=== PATIENT | male | born 1960 | race Two or more races ===

== ENCOUNTER 2020-05-13 05:46 | Inpatient (IN) | payer OTHER ==
[~2020-05-13] VITALS: Ht 177.8 cm; Wt 111.8 kg
[2020-05-13] VITALS (16 sets, daily range): BP systolic 130–159; BP diastolic 80–98
[~2020-05-13 05:46] MED LIST: ADALAT10 MG ORAL; CARVEDILOL25 MG ORAL; FUROSEMIDE40 MG ORAL; HYDRALAZINE HCL50 MG ORAL; LISINOPRIL40 MG ORAL; MULTIVITAMINS1 EAC2 ORAL; OMEPRAZOLE40 M1 ORAL; PROBIOTIC1 EAC2 PO; SIMVASTATIN5 MG ORAL; TYLENOL EXTRA500 MG ORAL
[2020-05-13] MEDS ORDERED: celeBREX 200mg Cap **SURGERY PATIENTS ONLY ORAL ONE (06:00)
[2020-05-13] MEDS ORDERED: ceFAZolin 1gm IVPB IVPB ONE ×2 (06:00)
[2020-05-13] MEDS ORDERED: oxyCONTIN 10mg tab ORAL ONE (06:00)
[2020-05-13] MEDS ORDERED: LR 1000ml 1,000 ML IVLG SCH (06:48)
[2020-05-13] MEDS ORDERED: Bacitracin 50000 Units Vial ONE (06:48)
[2020-05-13] MEDS ORDERED: NeoSporin Gu Irrig 1ml Amp IRRIG ONE (06:48)
--- NOTE | 2020-05-13 06:52 | Anethesia Preoperative Eval ---
Anesthesia Pre-op PMH/ROS General Date of Evaluation: May 13, 2020 Time of Evaluation: 06:49 Anesthesiologist: Micah ASA Score: ASA 3 Mallampati Score Class I : Soft palate, uvula, fauces, pillars visible Class II: Soft palate, uvula, fauces visible Class III: Soft palate, base of uvula visible Class IV: Only hard plate visible Mallampati Classification: Class III Surgeon: Marissa Diagnosis: L Knee Pain Surgical Procedure: L TKR Anesthesia History: none Family History: no anesthesia problems Allergies: Coded Allergies: No Known Allergies (Unverified , 05/13/20) Medications: see eMAR Patient NPO?: Yes Past Medical History Cardiovascular: Reports: HTN, other - HL, CHF Pulmonary: Reports: ULYSSES - CPAP Hematology/Immune: Reports: anemia Musculoskeletal/Integumentary: Reports: OA Other: obesity - BMI 38 Anesthesia Pre-op Phys. Exam Physician Exam Last Vital Signs Date Time Temp Pulse Resp B/P (MAP) Pulse Ox O2 Delivery O2 Flow Rate FiO2 05/13/20 06:18 Room Air 05/13/20 06:14 98.5 68 20 144/93 (110) 97 Constitutional: NAD Neurologic: CN 2-12 intact Cardiovascular: RRR Respiratory: CTA Gastrointestinal: S/NT/ND Airway Exam Mallampati Score: Class III MO: full ROM: limited Teeth: missing, intact Anesthesia Pre-op A/P Risk Assessment & Plan Assessment: ASA 3 Plan: GA,L Adductor Block, SED Status Change Before Surgery: No Pre-Antibiotics Dru Grams Ancef IV Given Within 1 Hr of Incision: Yes Time Given: 07:21 Domenic Obrien MD May 13, 2020 06:52
--- NOTE | 2020-05-13 06:55 | Immediate Post-Op Evaluation ---
Immediate Post-Op Evalulation Immediate Post-Op Evalulation Procedure: L TKR Date of Evaluation: May 13, 2020 Time of Evaluation: 10:04 IV Fluids: 1000 LR Blood Products: 0 Estimated Blood Loss: 50 Urinary Output: 250 Blood Pressure Systolic: 151 Blood Pressure Diastolic: 91 Pulse Rate: 77 Respiratory Rate: 16 O2 Sat by Pulse Oximetry: 100 Temperature (Fahrenheit): 97.2 Pain Score (1-10): 2 Nausea: No Vomiting: No Complications 0 Patient Status: awake, reacts, patent, none Dru Grams Ancef IV Given Within 1 Hr of Incision: Yes Time Given: 07:21 Domenic Obrien MD May 13, 2020 06:55
--- NOTE | 2020-05-13 06:56 | 48 Hour Post Anesthesia Eval ---
Post Anesthesia Evaluation Procedure: L TKR Date of Evaluation: May 13, 2020 Time of Evaluation: 12:14 Blood Pressure Systolic: 141 0: 89 Pulse Rate: 72 Respiratory Rate: 18 Temperature (Fahrenheit): 98 O2 Sat by Pulse Oximetry: 100 Airway: patent Nausea: No Vomiting: No Pain Intensity: 2 Hydration Status: adequate Cardiopulmonary Status: Stable Mental Status/LOC: patient returned to baseline Follow-up Care/Observations: 0 Post-Anesthesia Complications: 0 Follow-up care needed: N/A Domenic Obrien MD May 13, 2020 06:56
[2020-05-13] MEDS ORDERED: EPINEPHrine 1mg/1ml Amp ONE (06:58)
[2020-05-13] MEDS ORDERED: Lidocaine 1% MPF 10mg/ml 5ml ONE (06:58)
[2020-05-13] MEDS ORDERED: Ropivacaine 5mg/ml Vial 20ml INJ ONE ×2 (06:58→07:10)
[2020-05-13] MEDS ORDERED: Sodium Chloride 10ml vial INJ ONE (06:58)
[2020-05-13] MEDS ORDERED: Sterile Water Irrig 1000ml IRRIG ONE (07:00)
[2020-05-13] MEDS ORDERED: Hydromorphone 0.5mg/0.5ml inj IVP PRN (07:00)
[2020-05-13] MEDS ORDERED: Atropine Sulfate 0.4mg/ml inj IVP PRN (07:00)
[2020-05-13] MEDS ORDERED: Ketamine 500mg/10ml vial ONE (07:00)
[2020-05-13] MEDS ORDERED: NS Irrig 2000ml IRRIG ONE (07:00)
[2020-05-13] MEDS ORDERED: oxyCODONE HCL/Acetaminophen 5/325mg ORAL PRN (07:00)
[2020-05-13] MEDS ORDERED: DiphenhydrAMINE 50mg/ml Inj IVP PRN (07:00)
[2020-05-13] MEDS ORDERED: LORazepam Inj 2mg/ml 1ml IV PRN (07:00)
[2020-05-13] MEDS ORDERED: Midazolam 2mg/2ml Inj IVP PRN (07:00)
[2020-05-13] MEDS ORDERED: Metoclopramide 10mg/2ml Inj IVP PRN (07:00)
[2020-05-13] MEDS ORDERED: LR 1000ml ONE (07:00)
[2020-05-13] MEDS ORDERED: HYDROcodone/Acetamin 7.5/325 tab ORAL PRN ×2 (07:00→07:15)
[2020-05-13] MEDS ORDERED: fentaNYL 100 mcg/2 mL IV PRN (07:00)
[2020-05-13] MEDS ORDERED: NS Irrig 1000ml ONE (07:00)
[2020-05-13] MEDS ORDERED: HYDROcodone/Acetamin 5/325 tab ORAL PRN (07:00)
[2020-05-13] MEDS ORDERED: Meperidine 25mg/0.5ml Inj (FOR RIGORS ONLY) IV PRN (07:00)
[2020-05-13] MEDS ORDERED: Labetalol 5mg/ml 20ml vial IV PRN (07:00)
[2020-05-13] MEDS ORDERED: Ketorolac 30mg Inj IV PRN ×2 (07:00)
[2020-05-13] MEDS ORDERED: Acetaminophen (Non formulary) 100 ML IV ONE (07:00)
--- NOTE | 2020-05-13 07:04 | Pre-Procedure Note/Attestation ---
Pre-Procedure Note/Attestation Complete Prior to Procedure Planned Procedure: left Procedure Narrative: left total knee arthroplasty Indications for Procedure Pre-Operative Diagnosis: left knee arthritis Attestation I attest that I discussed the nature of the procedure; its benefits; risks and complications; and alternatives (and the risks and benefits of such alternatives ), prior to the procedure, with the patient (or the patient's legal internet sales representative). I attest that, if there was a reasonable possibility of needing a blood transfusion, the patient (or the patient's legal internet sales representative) was given the [facility] standardized written summary, pursuant to the Renato Carolee Blood Safety Act ([place] Health and Safety Code # 1645, as amended). I attest that I re-evaluated the patient just prior to the surgery and that there has been no change in the patient's H&P, except as documented below: NONE David Ann MD May 13, 2020 07:04
[2020-05-13] MEDS ORDERED: HYDROmorphone 1mg/ml Carpuject SUBQ PRN (07:15)
[2020-05-13] MEDS ORDERED: Tranexamic Acid 1,000 MG in NS 55 ML IV ONE (07:30)
[2020-05-13] MEDS ORDERED: fentaNYL 100 mcg/2 mL IV ONE ×2 (08:13→09:01)
--- NOTE | 2020-05-13 09:39 | Brief Operative Note ---
Immediate Post Operative Note Operative Note Chief Complaint: left knee pain Pre-op Diagnosis: left knee arthritis Procedure: left total knee arthroplasty Post-op Diagnosis: same as pre-op Findings: consistent w/pre-op dx studies Surgeon: Tawny wesley md Director Of Special Education: lexy linares Anesthesiologist: md elías Anesthesia: general Specimen: yes Complications: none Condition: stable Fluids: ns Estimated Blood Loss: minimal Drains: none - clint Implant(s) used?: Yes David Wesley MD May 13, 2020 09:39
--- NOTE | 2020-05-13 10:55 | NUR ---
NURSE NOTES: Radha SIMMONS brought patient by bed in stable condition. Alert and oriented x4. Complain of pain 4/10 on surgical site will administer pain medication as ordered. Surgical dressing intact and dry. On Knee immobilizer. IV dressing intact and dry. Belonging checked with Radha SIMMONS. Bed lowest position. Call light within reach. Will continue to monitor.
--- NOTE | 2020-05-13 11:30 | Operative Note - Dictated ---
DATE OF OPERATION: 05/13/2020 PREOPERATIVE DIAGNOSIS: Left knee end-stage arthritis with varus deformity. POSTOPERATIVE DIAGNOSIS: Left knee end-stage arthritis with varus deformity. PROCEDURE: Left total knee arthroplasty using Alejandro Triathlon System, size 6 cruciate-retaining femur, size 7 tibial base plate, 9 mm thick tibial-bearing insert CS and 36 mm patella all-poly component. SURGEON: David Ann MD. AUDIT SPEC: Daksha Palumbo PA-C. ANESTHESIOLOGIST: Domenic Obrien MD. ANESTHESIA: General LMA anesthesia combined with adductor block for postoperative pain management. ESTIMATED BLOOD LOSS: Less than 50 mL. TOURNIQUET TIME: 80 minutes. COMPLICATIONS: None. BRIEF HISTORY: The patient is a pleasant 59-year-old gentleman, who has had ongoing left knee pain, deformity and arthritic changes. He was treated conservatively and failed all nonoperative treatment. After full discussion of risks, benefits of the surgery and complications associated with it including infection, bleeding, neurovascular complication, possibility of continued pain, possible need for further surgery, possibility of DVT, PE, infection, bleeding, neurovascular complication, possibility of stiffness, loss of motion, need for revision surgery, possible need for resection arthroplasty and other complications that may arise down the line, he opted for surgical treatment. OPERATIVE PROCEDURE: The patient was brought to the operating table and was placed supine. All pressure points were well padded. General LMA anesthesia was induced and left knee was prepped and draped in usual sterile fashion. The left leg was exsanguinated. Tourniquet was inflated to 275 mmHg. A standard anterior approach to the knee was undertaken after time-out was performed and after preop antibiotics were given. Preoperative antibiotics were given prior to tourniquet inflation. Next, tranexamic acid was given preoperatively as well. A standard anterior incision was made over the knee. A medial parapatellar arthrotomy was performed and deep fibers of the MCL were released. The patella was everted and knee was flexed. ACL and PCL were resected. Intramedullary access into the femoral canal was obtained using a drill and once this was completed, the intramedullary guide was placed in. A standard distal 5-degree valgus cut was performed without any complications. At this point, sizing of the femur was made and size 6 appeared to be the right size. There were multiple osteophytes that were removed. Subsequently, the femoral guide was placed about 3 degrees external rotation and anterior, posterior, and chamfer cuts were performed without any complications. Care was given not to notch the femur. At this point, the femoral component was lateralized slightly and the peg holes were drilled. At this point, care was given to the tibial side. The posterior, medial, lateral retractors were placed in. The anterior tibial crest was palpated to recreate anatomical axis. The posterior slope was recreated and while taking 2 mm off the most involved side, which was medial side, a standard tibial cut was performed. Flexion, extension checks were checked and they were excellent. The anatomical axis was created and this was checked both on the tibial guide as well as drop gerard. Once this was completed, sizing was performed and size 7 appeared to be right size. The tibial component was lateralized slightly and externally rotated. At this point, it was drilled and punched. At this point, a trial femoral component, tibial component, a 9 mm poly were placed in and the knee was brought into full extension and full flexion. There was excellent varus valgus tibia 30 degrees, 45 degrees, and 90 degrees of flexion. At this point, care was given to the patella. The patella was everted. It measured 25 mm. A freehand patellar cut was performed with 15 mm of patella was remaining at the end. Sizing was performed and 36 mm patella appeared to be the right size. The peg holes were drilled and patellar trial component was applied. The knee was placed through range of motion with excellent patellofemoral tracking. At this point, all wounds were thoroughly irrigated using copious amount of fluid irrigation. All trial components were removed and again thoroughly irrigation was performed using Simpulse irrigation. The entry into the femoral canal was plugged using bone plugs. At this point, the cement was mixed and the tibial component, femoral component, patella components were all cemented and all excess cement was removed. The cement was cured under compression. Once this was completed, 9 mm poly appeared to be the right size after trialing and actual 9 mm poly was then selected and knee was thoroughly washed out using Simpulse irrigation and the poly was then locked in without any complication. All excess cement and debris was removed prior to final poly insertion. At this point, with all components placed in, range of motion, stability was checked as well as patellofemoral tracking and they all appeared to be excellent. The wounds were thoroughly irrigated using copious amount of fluid. Tourniquet was deflated and there was minimal bleeding. The extensor mechanism was closed using #1 Vicryl suture. Subcutaneous tissue was closed using 2-0 Vicryl suture. The skin was closed using 3-0 Monocryl suture. Dermabond was applied and sterile dressing was applied and the patient tolerated procedure well without any complication, was taken recovery room in stable condition. All lap counts and instrument counts were correct. David Ann M.D. DR: YARA JOB#: [id number] CC: AMINAH
--- NOTE | 2020-05-13 11:44 | Diagnostic Imaging Report ---
INDICATION: Knee pain, postop TECHNIQUE: XRAY Knee 1-2v L Multiple views of the left knee were obtained COMPARISON: None FINDINGS: The patient is status post total left knee arthroplasty and patellar resurfacing with associated postoperative appearance including diffuse soft tissue swelling, subcutaneous emphysema, and a large joint effusion containing gas no evidence of immediate hardware-related complication. No acute fracture. Prosthesis is in anatomic alignment. IMPRESSION: Status post total left knee arthroplasty with associated postoperative appearance.
[2020-05-13] MEDS ORDERED: CRESTOR10 M2 ORAL (12:09)
--- NOTE | 2020-05-13 13:06 | NUR ---
NURSE NOTES: Patient voided 500 ml yellow urine. No complain of discomfort at this time. Will continue to monitor.
[2020-05-13] MEDS: celeBREX 200mg Cap **SURGERY PATIENTS ONLY ORAL SCH (13:20)
[2020-05-13] MEDS: Docusate 100mg cap ORAL SCH ×2 (13:20→17:12)
[2020-05-13] MEDS: D5 1/2NS w/KCl 20mEq 1,000 ML IV SCH (13:22)
--- NOTE | 2020-05-13 13:23 | NUR ---
*-*DISCHARGE PLANNING*-* PATIENT HAS BEEN REFERRED TO: [facility] P: [phone]
--- NOTE | 2020-05-13 13:38 | NUR ---
NURSE NOTES: Spoke to regarding home medication and new order received. Order read back and carried out.
--- NOTE | 2020-05-13 15:52 | NUR ---
P.T Note: P.T evaluation completed and tx initiated POD #0. Please refer to P.T evaluation for current functional status. CPM set up and started . Pt tolerating 0-60 deg well. CPM to be removed OOB after 4-6 hrs of uses. CPM was endorsed to nursing at the end of P.T shift.
[2020-05-13] MEDS: ceFAZolin sod 1 GM in D5W 55 ML IV SCH ×2 (16:30→23:17)
[2020-05-13] MEDS: HYDROcodone/Acetamin 5/325 tab ORAL PRN ×2 (17:13→23:43)
--- NOTE | 2020-05-13 19:26 | NUR ---
NURSE HAND-OFF: Important Events on Shift: Surgery today Patient Status: Stable Diet: Regular Pending Orders: N/A Pending Results/Labs: CBC, CMP on 05/14/20 Pending MD notification: N/A Latest Vital Signs: Temperature 98.6 , Pulse 60 , B/P 131 /82 , Respiratory Rate 20 , O2 SAT 100 , Nasal Cannula, O2 Flow Rate 3 . Vital Sign Comment: Stable Latest Dennis Fall Score: 50 Fall Risk: High Risk Safety Measures: Call light , Bed Alarm , Side Rails Side Rails x1, Bed position . Fall Precautions: Applied Report given to Jack SIMMONS. Patient in stable condition.
--- NOTE | 2020-05-13 19:30 | NUR ---
NURSE NOTES: Received report from IRIS Hyman. Alert and oriented x4. No distress noted. Breathing regular and unlabored. Surgical dressing intact and dry. Knee immobilizer on. IV dressing intact and running fluids as ordered. Bed low and locked position. Call light within reach. Will continue to monitor.
[2020-05-13] MEDS: oxyCONTIN 10mg tab ORAL SCH (21:41)
[2020-05-13] MEDS: Carvedilol 25mg Tab ORAL SCH (21:44)
[2020-05-13] MEDS: HydrALAZINE 50mg tab ORAL SCH (21:45)
[2020-05-14] VITALS: BP 135/85
[2020-05-14] MEDS: D5 1/2NS w/KCl 20mEq 1,000 ML IV SCH ×2 (00:51→17:34)
[2020-05-14 04:00] VITALS: BP 138/90
[2020-05-14 05:38] LABS: BASOPHILS % (AUTO) 0.4 % (0.0-2.0); HEMATOCRIT 32.2 % (42.0-52.0); HEMOGLOBIN 10.5 G/DL (14.2-18.0); LYMPHOCYTES % (AUTO) 10.3 % (20.0-45.0); MEAN CORPUSCULAR VOLUME 89 FL (80-99); MONOCYTES % (AUTO) 10.7 % (1.0-10.0); NEUTROPHILS % (AUTO) 78.7 % (45.0-75.0); PLATELET COUNT 123 K/UL (150-450); RED BLOOD COUNT 3.61 M/UL (4.70-6.10); RED CELL DISTRIBUTION WIDTH 13.4 % (11.6-14.8); WHITE BLOOD COUNT 10.9 K/UL (4.8-10.8)
[2020-05-14 05:52] LABS: ALANINE AMINOTRANSFERASE 20 U/L (12-78); ALBUMIN 3.5 G/DL (3.4-5.0); ALBUMIN/GLOBULIN RATIO 1.1 (1.0-2.7); ALKALINE PHOSPHATASE 35 U/L (46-116); ANION GAP 7 mmol/L (5-15); ASPARTATE AMINO TRANSFERASE 16 U/L (15-37); BILIRUBIN,TOTAL 0.8 MG/DL (0.2-1.0); BLOOD UREA NITROGEN 27 mg/dL (7-18); CARBON DIOXIDE 28 MMOL/L (21-32); CHLORIDE 105 MMOL/L (98-107); CREATININE 1.4 MG/DL (0.55-1.30); POTASSIUM 3.8 MMOL/L (3.5-5.1); SODIUM 140 MMOL/L (136-145)
[2020-05-14] MEDS: HydrALAZINE 50mg tab ORAL SCH ×3 (06:26→21:04)
--- NOTE | 2020-05-14 07:53 | NUR ---
NURSE HAND-OFF: Important Events on Shift: pain management Patient Status: stable Diet: reg Pending Orders: Pending Results/Labs: Pending MD notification: Latest Vital Signs: Temperature 98.5 , Pulse 65 , B/P 130 /65 , Respiratory Rate 18 , O2 SAT 97 , Room Air, O2 Flow Rate 3 . Vital Sign Comment: Latest Dennis Fall Score: 50 Fall Risk: High Risk Safety Measures: Call light Within Reach, Bed Alarm , Side Rails Side Rails x2, Bed position Low and Locked. Fall Precautions: Report given to IRIS Barber.
[2020-05-14 08:00] VITALS: BP 116/66
--- NOTE | 2020-05-14 08:06 | Orthopedic Progress Note ---
Orthopedic - Progress Note Subjective Symptoms: improved - up with walker Objective Laboratory Tests Test 05/14/20 04:45 White Blood Count 10.9 K/UL (4.8-10.8) H Red Blood Count 3.61 M/UL (4.70-6.10) L Hemoglobin 10.5 G/DL (14.2-18.0) L Hematocrit 32.2 % (42.0-52.0) L Mean Corpuscular Volume 89 FL (80-99) Mean Corpuscular Hemoglobin 29.0 PG (27.0-31.0) Mean Corpuscular Hemoglobin Concent 32.5 G/DL (32.0-36.0) Red Cell Distribution Width 13.4 % (11.6-14.8) Platelet Count 123 K/UL (150-450) L Mean Platelet Volume 10.2 FL (6.5-10.1) H Neutrophils (%) (Auto) 78.7 % (45.0-75.0) H Lymphocytes (%) (Auto) 10.3 % (20.0-45.0) L Monocytes (%) (Auto) 10.7 % (1.0-10.0) H Eosinophils (%) (Auto) 0.0 % (0.0-3.0) Basophils (%) (Auto) 0.4 % (0.0-2.0) Sodium Level 140 MMOL/L (136-145) Potassium Level 3.8 MMOL/L (3.5-5.1) Chloride Level 105 MMOL/L (98-107) Carbon Dioxide Level 28 MMOL/L (21-32) Anion Gap 7 mmol/L (5-15) Blood Urea Nitrogen 27 mg/dL (7-18) H Creatinine 1.4 MG/DL (0.55-1.30) H Estimat Glomerular Filtration Rate 52.2 mL/min (>60) Glucose Level 128 MG/DL (74-106) H Calcium Level 8.0 MG/DL (8.5-10.1) L Total Bilirubin 0.8 MG/DL (0.2-1.0) Aspartate Amino Transf (AST/SGOT) 16 U/L (15-37) Alanine Aminotransferase (ALT/SGPT) 20 U/L (12-78) Alkaline Phosphatase 35 U/L (46-116) L Total Protein 6.7 G/DL (6.4-8.2) Albumin 3.5 G/DL (3.4-5.0) Globulin 3.2 g/dL Albumin/Globulin Ratio 1.1 (1.0-2.7) Last 24 Hour Vital Signs Date Time Temp Pulse Resp B/P (MAP) Pulse Ox O2 Delivery O2 Flow Rate FiO2 05/14/20 06:26 130/65 05/14/20 04:00 98.5 65 18 138/90 (106) 97 05/14/20 00:00 98.1 61 18 135/85 (102) 100 05/13/20 21:45 135/84 05/13/20 21:44 61 135/84 05/13/20 21:00 Room Air 05/13/20 20:00 98.0 60 18 130/80 (97) 98 05/13/20 16:00 98.6 60 20 131/82 (98) 100 05/13/20 14:00 98.1 77 20 138/91 (107) 98 05/13/20 13:00 98.3 86 18 146/96 (113) 96 05/13/20 12:00 97.5 78 20 149/97 (114) 95 05/13/20 11:30 97.5 79 18 158/98 (118) 98 05/13/20 11:00 97.8 80 20 159/88 (111) 97 05/13/20 10:52 97.9 05/13/20 10:45 97.9 75 22 152/93 100 Nasal Cannula 3 05/13/20 10:35 75 16 151/91 100 Nasal Cannula 3 05/13/20 10:22 80 14 154/89 100 Simple Mask 6 05/13/20 10:18 74 14 152/91 100 Simple Mask 6 05/13/20 10:08 73 18 145/92 100 Simple Mask 6 05/13/20 09:58 73 18 147/92 100 Simple Mask 6 05/13/20 09:53 76 21 148/89 100 Simple Mask 6 05/13/20 09:51 72 18 100 05/13/20 09:50 77 16 100 05/13/20 09:48 97.2 71 20 151/91 100 Simple Mask 6 Intake and Output 05/13/20 05/14/20 19:00 07:00 Intake Total 1500 ml 380 ml Output Total 800 ml Balance 700 ml 380 ml Intake Oral 400 ml 380 ml IV Total 1100 ml Output Urine Total 750 ml Estimated Blood Loss 50 ml # Voids 1 2 Laboratory Tests Test 05/14/20 04:45 White Blood Count 10.9 K/UL (4.8-10.8) H Red Blood Count 3.61 M/UL (4.70-6.10) L Hemoglobin 10.5 G/DL (14.2-18.0) L Hematocrit 32.2 % (42.0-52.0) L Mean Corpuscular Volume 89 FL (80-99) Mean Corpuscular Hemoglobin 29.0 PG (27.0-31.0) Mean Corpuscular Hemoglobin Concent 32.5 G/DL (32.0-36.0) Red Cell Distribution Width 13.4 % (11.6-14.8) Platelet Count 123 K/UL (150-450) L Mean Platelet Volume 10.2 FL (6.5-10.1) H Neutrophils (%) (Auto) 78.7 % (45.0-75.0) H Lymphocytes (%) (Auto) 10.3 % (20.0-45.0) L Monocytes (%) (Auto) 10.7 % (1.0-10.0) H Eosinophils (%) (Auto) 0.0 % (0.0-3.0) Basophils (%) (Auto) 0.4 % (0.0-2.0) Sodium Level 140 MMOL/L (136-145) Potassium Level 3.8 MMOL/L (3.5-5.1) Chloride Level 105 MMOL/L (98-107) Carbon Dioxide Level 28 MMOL/L (21-32) Anion Gap 7 mmol/L (5-15) Blood Urea Nitrogen 27 mg/dL (7-18) H Creatinine 1.4 MG/DL (0.55-1.30) H Estimat Glomerular Filtration Rate 52.2 mL/min (>60) Glucose Level 128 MG/DL (74-106) H Calcium Level 8.0 MG/DL (8.5-10.1) L Total Bilirubin 0.8 MG/DL (0.2-1.0) Aspartate Amino Transf (AST/SGOT) 16 U/L (15-37) Alanine Aminotransferase (ALT/SGPT) 20 U/L (12-78) Alkaline Phosphatase 35 U/L (46-116) L Total Protein 6.7 G/DL (6.4-8.2) Albumin 3.5 G/DL (3.4-5.0) Globulin 3.2 g/dL Albumin/Globulin Ratio 1.1 (1.0-2.7) Wound: clean, dry, intact Drains: none Neuro Status: normal Vascular Status: normal Additional Comments xray reviewed: excellent Assessment Post-op Diagnosis POD 1 left total knee arthroplasty Plan Plan: PT, discharge plan - to acute rehab possibly tomorrow Daksha Palumbo May 14, 2020 08:06
[2020-05-14] MEDS: Lisinopril 20mg tab ORAL SCH (09:07)
[2020-05-14] MEDS: Furosemide 40mg tab ORAL SCH (09:08)
[2020-05-14] MEDS: Docusate 100mg cap ORAL SCH ×3 (09:08→17:34)
[2020-05-14] MEDS: oxyCONTIN 10mg tab ORAL SCH ×2 (09:08→21:03)
[2020-05-14] MEDS: celeBREX 200mg Cap **SURGERY PATIENTS ONLY ORAL SCH (09:09)
[2020-05-14] MEDS: Carvedilol 25mg Tab ORAL SCH ×2 (09:09→21:04)
[2020-05-14 12:00] VITALS: BP 107/63
[2020-05-14 16:00] VITALS: BP 133/63
--- NOTE | 2020-05-14 16:59 | General Progress Note ---
Assessment/Plan Assessment/Plan: sp knee htn chf ho sleep apnea uses cpap post op care pain control bp controlled cpap at night oob PT dvt and ulcer prophylaxis Subjective Allergies: Coded Allergies: No Known Allergies (Unverified , 05/13/20) Subjective doing well post op pain controlled no chest painor sob Objective Last 24 Hour Vital Signs Date Time Temp Pulse Resp B/P (MAP) Pulse Ox O2 Delivery O2 Flow Rate FiO2 05/14/20 13:34 107/63 05/14/20 12:00 99.4 64 20 107/63 (78) 97 05/14/20 09:09 65 116/66 05/14/20 09:09 65 116/66 05/14/20 09:07 116/66 05/14/20 09:00 Room Air 05/14/20 08:00 98.8 65 18 116/66 (83) 97 05/14/20 06:26 130/65 05/14/20 04:00 98.5 65 18 138/90 (106) 97 05/14/20 00:00 98.1 61 18 135/85 (102) 100 05/13/20 21:45 135/84 05/13/20 21:44 61 135/84 05/13/20 21:00 Room Air 05/13/20 20:00 98.0 60 18 130/80 (97) 98 Intake and Output 05/13/20 05/14/20 19:00 07:00 Intake Total 1500 ml 380 ml Output Total 800 ml Balance 700 ml 380 ml Intake Oral 400 ml 380 ml IV Total 1100 ml Output Urine Total 750 ml Estimated Blood Loss 50 ml # Voids 1 2 Laboratory Tests 05/14/20 04:45: White Blood Count 10.9H, Red Blood Count 3.61L, Hemoglobin 10.5L, Hematocrit 32.2L, Mean Corpuscular Volume 89, Mean Corpuscular Hemoglobin 29.0, Mean Corpuscular Hemoglobin Concent 32.5, Red Cell Distribution Width 13.4, Platelet Count 123L, Mean Platelet Volume 10.2H, Neutrophils (%) (Auto) 78.7H, Lymphocytes (%) (Auto) 10.3L, Monocytes (%) (Auto) 10.7H, Eosinophils (%) (Auto ) 0.0, Basophils (%) (Auto) 0.4, Sodium Level 140, Potassium Level 3.8, Chloride Level 105, Carbon Dioxide Level 28, Anion Gap 7, Blood Urea Nitrogen 27H, Creatinine 1.4H, Estimat Glomerular Filtration Rate 52.2, Glucose Level 128H, Calcium Level 8.0L, Total Bilirubin 0.8, Aspartate Amino Transf (AST/SGOT ) 16, Alanine Aminotransferase (ALT/SGPT) 20, Alkaline Phosphatase 35L, Total Protein 6.7, Albumin 3.5, Globulin 3.2, Albumin/Globulin Ratio 1.1 Height (Feet): 5 Height (Inches): 10.00 Weight (Pounds): 246 General Appearance: WD/WN, no apparent distress Neck: supple Cardiovascular: normal rate Respiratory/Chest: lungs clear Abdomen: soft Edema: no edema noted Arm (L), no edema noted Arm (R), no edema noted Leg (L), no edema noted Leg (R), no edema noted Pedal (L), no edema noted Pedal (R), no edema noted Generalized Neurologic: alert Objective knee dreessing cleaen no sign of infection neurovascular intact Rudi Ambriz MD May 14, 2020 16:59
--- NOTE | 2020-05-14 17:04 | NUR ---
CASE MANAGEMENT: INITIAL REVIEW 59YR OLD MALE HERE FOR SCHEDULE SURGERY CC:LEFT KNEE PAIN SI:LEFT TOTAL KNEE REPAIR 98.5 68 20 144/93 97 IS:IN SURG NOW \: 3E MED SURG UNIT CASE MANAGEMENT: REVIEW 05/14/20 SI:S/P LEFT KNEE ARTHROPLASTY LEFT TOTAL KNEE REPAIR WBC 10.9 PLT 123 BUN 27/1.4 CA+ 8.0 IS:IV D5 @75ML/HR CERTIFIED PROSTHETIST VICE PRESIDENT DILAUDID COREG PO BID PROCARDIA XL PO QD PROTONIX PO QD LASIX PO QD \: 3E MED SURG UNIT PLAN: DC PLANNING TO ACUTE REHAB [facility]
--- NOTE | 2020-05-14 19:45 | NUR ---
NURSE NOTES: Pt is bed, awake and alert. No acute distress noted.Pt is s/p left knee surgery, Pt 's left knee is warped in Marlon Wrap, CMS is intact, pt is is using CPM machine. No SOB, no coughing. Pt is ambulating with walker in and out of bathroom. Pt is encouraged to use incentive spherometer. Pt asked to call for assistance before getting out of bed. Bed locked low in position,side rails up and call light within reach. Pt will be monitored.
--- NOTE | 2020-05-14 19:55 | NUR ---
NURSE HAND-OFF: Important Events on Shift:[N ] Patient Status: [stable] Diet: [Regular] Pending Orders: [N] Pending Results/Labs:[N] Pending MD notification:[N] Latest Vital Signs: Temperature 99.4 , Pulse 79 , B/P 133 /63 , Respiratory Rate 18 , O2 SAT 98 , Room Air, O2 Flow Rate 3 . Vital Sign Comment: [] Latest Dennis Fall Score: 50 Fall Risk: High Risk Safety Measures: Call light Within Reach, Bed Alarm , Side Rails Side Rails x2, Bed position Low and Locked. Fall Precautions: Report given to [Kunal RN].
[2020-05-14 20:00] VITALS: BP 139/91
--- NOTE | 2020-05-14 21:14 | NUR ---
NURSE NOTES: Pt has temp 102.1, Tylenol 650mg given po as ordered PRN for elevated temperature. Pt will be reassessed. Pt is calm in bed. D51/2NS with 20mEq KCl running at 75ml/hr.
[2020-05-14] MEDS: HYDROcodone/Acetamin 5/325 tab ORAL PRN (23:37)
[2020-05-15] VITALS: BP 117/76
--- NOTE | 2020-05-15 03:35 | NUR ---
NURSE HAND-OFF: Important Events on Shift:[Pt had fever overnight, highest [id number]; Tylenol given as ordered] Patient Status: [Stable] Diet: [Regular] Pending Orders: [] Pending Results/Labs:[] Pending MD notification:[] Latest Vital Signs: Temperature 101.2 , Pulse 78 , B/P 117 /76 , Respiratory Rate 18 , O2 SAT 98 , Room Air, O2 Flow Rate 3 . Vital Sign Comment: [] Latest Dennis Fall Score: 50 Fall Risk: High Risk Safety Measures: Call light Within Reach, Bed Alarm , Side Rails Side Rails x2, Bed position Low and Locked. Fall Precautions: Report given to [IRIS Alfredo].Endorsed to Juni to recheck temp and call MD if needed. Pt is fall risk.
[2020-05-15 04:00] VITALS: BP 118/74
[2020-05-15] MEDS: D5 1/2NS w/KCl 20mEq 1,000 ML IV SCH (04:20)
[2020-05-15 05:39] LABS: BASOPHILS % (AUTO) 0.9 % (0.0-2.0); HEMATOCRIT 31.5 % (42.0-52.0); HEMOGLOBIN 10.4 G/DL (14.2-18.0); LYMPHOCYTES % (AUTO) 11.5 % (20.0-45.0); MEAN CORPUSCULAR VOLUME 89 FL (80-99); MONOCYTES % (AUTO) 13.4 % (1.0-10.0); NEUTROPHILS % (AUTO) 73.2 % (45.0-75.0); PLATELET COUNT 111 K/UL (150-450); RED BLOOD COUNT 3.53 M/UL (4.70-6.10); RED CELL DISTRIBUTION WIDTH 13.9 % (11.6-14.8); WHITE BLOOD COUNT 13.2 K/UL (4.8-10.8)
[2020-05-15] MEDS: HydrALAZINE 50mg tab ORAL SCH ×3 (06:04→22:00)
--- NOTE | 2020-05-15 07:34 | Orthopedic Progress Note ---
Orthopedic - Progress Note Subjective Symptoms: c/o post-op knee pain Objective Last 24 Hour Vital Signs Date Time Temp Pulse Resp B/P (MAP) Pulse Ox O2 Delivery O2 Flow Rate FiO2 05/15/20 06:04 118/74 05/15/20 04:00 97.8 63 20 118/74 (89) 100 05/15/20 00:00 101.2 78 18 117/76 (90) 98 05/14/20 21:37 101.2 05/14/20 21:04 139/91 05/14/20 21:04 92 139/91 05/14/20 21:00 Room Air 05/14/20 20:00 102.1 92 18 139/91 (107) 98 05/14/20 16:00 99.4 79 18 133/63 (86) 98 05/14/20 13:34 107/63 05/14/20 12:00 99.4 64 20 107/63 (78) 97 05/14/20 09:09 65 116/66 05/14/20 09:09 65 116/66 05/14/20 09:07 116/66 05/14/20 09:00 Room Air 05/14/20 08:00 98.8 65 18 116/66 (83) 97 Intake and Output 05/14/20 05/15/20 19:00 07:00 Intake Total 715 ml 600 ml Balance 715 ml 600 ml Intake Oral 640 ml IV Total 75 ml 600 ml # Voids 4 3 Laboratory Tests Test 05/15/20 04:45 White Blood Count 13.2 K/UL (4.8-10.8) H Red Blood Count 3.53 M/UL (4.70-6.10) L Hemoglobin 10.4 G/DL (14.2-18.0) L Hematocrit 31.5 % (42.0-52.0) L Mean Corpuscular Volume 89 FL (80-99) Mean Corpuscular Hemoglobin 29.3 PG (27.0-31.0) Mean Corpuscular Hemoglobin Concent 32.8 G/DL (32.0-36.0) Red Cell Distribution Width 13.9 % (11.6-14.8) Platelet Count 111 K/UL (150-450) L Mean Platelet Volume 10.5 FL (6.5-10.1) H Neutrophils (%) (Auto) 73.2 % (45.0-75.0) Lymphocytes (%) (Auto) 11.5 % (20.0-45.0) L Monocytes (%) (Auto) 13.4 % (1.0-10.0) H Eosinophils (%) (Auto) 1.0 % (0.0-3.0) Basophils (%) (Auto) 0.9 % (0.0-2.0) Wound: clean, dry Drains: none Neuro Status: normal Assessment Procedure Performed left total knee arthroplasty Plan Plan: PT, pain management, discharge plan Additional Comments discharge to acute rehab vs SNF (preauthorized). Follow up with me in 2 weeks David Ann MD May 15, 2020 07:34
--- NOTE | 2020-05-15 07:36 | NUR ---
NURSE HAND-OFF: Important Events on Shift:[STABLE] Patient Status: [STABLE] Diet: [REG] Pending Orders: [] Pending Results/Labs:[] Pending MD notification:[] Latest Vital Signs: Temperature 97.8 , Pulse 63 , B/P 118 /74 , Respiratory Rate 20 , O2 SAT 100 , Room Air, O2 Flow Rate 3 . Vital Sign Comment: [] Latest Dennis Fall Score: 50 Fall Risk: High Risk Safety Measures: Call light Within Reach, Bed Alarm , Side Rails Side Rails x2, Bed position Low and Locked. Fall Precautions: Report given to [KHOA SIMMONS].
--- NOTE | 2020-05-15 07:37 | NUR ---
NURSE NOTES: Received report from Gonzalo RN, rounds made pt having breakfast , breaths regular unlabored, no s/s of distress on RA, pt denies any pain at this time , dressings on Left knee clean intact . I.V access on LT hand , with i.v fluids , patent asymptomatic intact , bed in low locked position , side rails upX2, call light with in reach , will continue to Monitor
[2020-05-15 08:00] VITALS: BP 103/60
[2020-05-15] MEDS: Furosemide 40mg tab ORAL SCH (08:09)
[2020-05-15] MEDS: Carvedilol 25mg Tab ORAL SCH ×2 (08:09→20:43)
[2020-05-15] MEDS: Docusate 100mg cap ORAL SCH ×3 (08:10→17:20)
[2020-05-15] MEDS: celeBREX 200mg Cap **SURGERY PATIENTS ONLY ORAL SCH (08:10)
[2020-05-15] MEDS: Lisinopril 20mg tab ORAL SCH (08:10)
[2020-05-15] MEDS: oxyCONTIN 10mg tab ORAL SCH ×2 (08:11→20:42)
[2020-05-15] MEDS: Milk of Magnesia 30ml Ud ORAL PRN (08:11)
--- NOTE | 2020-05-15 08:48 | Discharge Summary ---
Discharge Summary Hospital Course Date of Admission May 13, 2020 at 05:46 Date of Discharge 05/15/2020 Admitting Diagnosis left knee arthritis Reason for Hospitalization: s/p left total knee arthroplasty HPI Jama Casiaon is a 59 year old male who was admitted on May 13, 2020 at 05 :46 for Primary Oa Of Left Knee Consultations MD Pb Procedures left total knee arthroplasty Hospital Course benign Discharge Condition Upon Discharge: improving, stable Discharge Vital Signs Last Vital Signs Date Time Temp Pulse Resp B/P (MAP) Pulse Ox O2 Delivery O2 Flow Rate FiO2 05/15/20 08:10 103/60 05/15/20 08:09 78 05/15/20 08:00 99.4 20 95 05/14/20 21:00 Room Air 05/13/20 10:45 3 Discharge Disposition Patient was discharged to Acute rehab Daksha Palumbo May 15, 2020 08:48
--- NOTE | 2020-05-15 10:40 | NUR ---
Discharge planning patient to dc to [facility] CM instructed to fax dc order to T: [phone]
[2020-05-15 12:00] VITALS: BP 105/57
[2020-05-15] MEDS: HYDROcodone/Acetamin 5/325 tab ORAL PRN ×2 (13:54→22:30)
[2020-05-15 16:00] VITALS: BP 133/63
--- NOTE | 2020-05-15 16:36 | NUR ---
CASE MANAGEMENT: REVIEW 05/15/20 SI:. THROMBOCYTOPENIA . S/P LEFT KNEE ARTHROPLASTY . LEFT TOTAL KNEE REPAIR 98.9 77 21 105/57 95% ON RA WBC 13.2 PLT 111 BUN/CREAT 27/1.4 BG 128 CA+8.0 IS:IV D5 @75ML/HR VOLUNTEER ASSISTANT DILAUDID COREG PO BID PROCARDIA XL PO QD PROTONIX PO QD LASIX PO QD \: 3E MED SURG UNIT PLAN: DC PLANNING TO ACUTE REHAB [facility]
--- NOTE | 2020-05-15 17:09 | NUR ---
Discharge planning: Patient accept to [facility] Barrier to dc today: auth not given to [facility] once auth obtained patient may transfer; this may happen today this evening or in am
--- NOTE | 2020-05-15 19:53 | NUR ---
NURSE HAND-OFF: Important Events on Shift: Patient Status: stable Diet: regular Pending Orders: pending D/C Pending Results/Labs: Pending MD notification: Latest Vital Signs: Temperature 98.4 , Pulse 79 , B/P 133 /63 , Respiratory Rate 20 , O2 SAT 98 , Room Air, O2 Flow Rate 3 . Vital Sign Comment: Latest Dennis Fall Score: 50 Fall Risk: High Risk Safety Measures: Call light Within Reach, Bed Alarm , Side Rails Side Rails x2, Bed position Low and Locked. Fall Precautions: Report given to Ayanna SIMMONS, .
--- NOTE | 2020-05-15 19:55 | NUR ---
NURSE NOTES: Received patient and report from IRIS Barber. Patient a&ox4, no signs of acute distress. Pain level stated as 7/10. Will provide pain medication when due. Dressing on left leg is clean dry and intact. Plan of care discussed.
[2020-05-15 20:00] VITALS: BP 117/58
--- NOTE | 2020-05-15 23:50 | NUR ---
NURSE NOTES: Dressing change done on left knee surgical site. applied 4x4, ABD, and tagaderm. Clean dry and intact. patient tolerated procedure well.
[2020-05-16] VITALS: BP 109/63
[2020-05-16 04:00] VITALS: BP 105/67
[2020-05-16 05:22] LABS: HEMATOCRIT 28.3 % (42.0-52.0); HEMOGLOBIN 9.2 G/DL (14.2-18.0); MEAN CORPUSCULAR VOLUME 89 FL (80-99); PLATELET COUNT 97 K/UL (150-450); RED BLOOD COUNT 3.18 M/UL (4.70-6.10); RED CELL DISTRIBUTION WIDTH 13.6 % (11.6-14.8); WHITE BLOOD COUNT 11.8 K/UL (4.8-10.8)
[2020-05-16] MEDS: HydrALAZINE 50mg tab ORAL SCH ×3 (05:57→22:00)
--- NOTE | 2020-05-16 07:03 | NUR ---
NURSE NOTES: Report received from Ángel RN, rounds made. Patient AOx4, calm. HOB elevated in bed, tolerating breakfast. Denies NV, SOB. Pain to left knee 6-/, ice pack in place, will medicate as ordered. Left knee dressing CDI (4x4 with tegederm), +2 pitting edema noted to LLE, skin warm, pulses palpable, wiggles, no NT, pedal push 4/5, encouraged ankle rotation and IS. Right SCD on. Left hand saline lock, site asymptomatic. Call light in reach, bed in lowest position, will continue to monitor.
--- NOTE | 2020-05-16 07:10 | NUR ---
NURSE HAND-OFF: Important Events on Shift: Fever 101.3 but alleviated by Tylenol. Latest temp at 99.3. Pending dc to acute rehab. Patient Status: stable Diet: regular Pending Orders: NA Pending Results/Labs:NA Pending MD notification:nothing Latest Vital Signs: Temperature 99.3 , Pulse 63 , B/P 118 /70 , Respiratory Rate 16 , O2 SAT 98 , Room Air, O2 Flow Rate 3 . Vital Sign Comment: nothing Latest Dennis Fall Score: 50 Fall Risk: High Risk Safety Measures: Call light Within Reach, Bed Alarm , Side Rails Side Rails x2, Bed position Low and Locked. Fall Precautions: Report given to IRIS Cheung
[2020-05-16 08:00] VITALS: BP 107/64
--- NOTE | 2020-05-16 08:28 | Orthopedic Progress Note ---
Orthopedic - Progress Note Subjective Symptoms: other - awaiting d/c to rehab Objective Laboratory Tests Test 05/16/20 04:45 White Blood Count 11.8 K/UL (4.8-10.8) H Red Blood Count 3.18 M/UL (4.70-6.10) L Hemoglobin 9.2 G/DL (14.2-18.0) L Hematocrit 28.3 % (42.0-52.0) L Mean Corpuscular Volume 89 FL (80-99) Mean Corpuscular Hemoglobin 28.9 PG (27.0-31.0) Mean Corpuscular Hemoglobin Concent 32.4 G/DL (32.0-36.0) Red Cell Distribution Width 13.6 % (11.6-14.8) Platelet Count 97 K/UL (150-450) L Mean Platelet Volume 10.7 FL (6.5-10.1) H Neutrophils (%) (Auto) % (45.0-75.0) Lymphocytes (%) (Auto) % (20.0-45.0) Monocytes (%) (Auto) % (1.0-10.0) Eosinophils (%) (Auto) % (0.0-3.0) Basophils (%) (Auto) % (0.0-2.0) Last 24 Hour Vital Signs Date Time Temp Pulse Resp B/P (MAP) Pulse Ox O2 Delivery O2 Flow Rate FiO2 05/16/20 05:57 118/70 05/16/20 04:00 99.3 63 16 105/67 (80) 98 05/16/20 00:00 100.7 74 16 109/63 (78) 95 05/15/20 22:00 99/62 05/15/20 21:12 99.4 05/15/20 21:00 Room Air 05/15/20 20:43 77 117/58 05/15/20 20:00 101.3 77 18 117/58 (77) 95 05/15/20 16:00 98.4 79 20 133/63 (86) 98 05/15/20 13:54 105/57 05/15/20 12:00 98.9 77 21 105/57 (73) 95 05/15/20 09:00 Room Air Intake and Output 05/15/20 05/16/20 19:00 07:00 Intake Total 800 ml 300 ml Balance 800 ml 300 ml Intake Oral 800 ml 300 ml # Voids 3 2 # Bowel Movements 1 Laboratory Tests Test 05/16/20 04:45 White Blood Count 11.8 K/UL (4.8-10.8) H Red Blood Count 3.18 M/UL (4.70-6.10) L Hemoglobin 9.2 G/DL (14.2-18.0) L Hematocrit 28.3 % (42.0-52.0) L Mean Corpuscular Volume 89 FL (80-99) Mean Corpuscular Hemoglobin 28.9 PG (27.0-31.0) Mean Corpuscular Hemoglobin Concent 32.4 G/DL (32.0-36.0) Red Cell Distribution Width 13.6 % (11.6-14.8) Platelet Count 97 K/UL (150-450) L Mean Platelet Volume 10.7 FL (6.5-10.1) H Neutrophils (%) (Auto) % (45.0-75.0) Lymphocytes (%) (Auto) % (20.0-45.0) Monocytes (%) (Auto) % (1.0-10.0) Eosinophils (%) (Auto) % (0.0-3.0) Basophils (%) (Auto) % (0.0-2.0) Wound: clean, dry, intact Drains: none Neuro Status: normal Vascular Status: normal Assessment Post-op Diagnosis POD 3 left total knee arthroplasty Plan Plan: discharge plan - to rehab today Daksha Palumbo May 16, 2020 08:28
[2020-05-16] MEDS: Lisinopril 20mg tab ORAL SCH (09:00)
[2020-05-16] MEDS: Carvedilol 25mg Tab ORAL SCH ×2 (09:00→22:43)
[2020-05-16] MEDS: Milk of Magnesia 30ml Ud ORAL PRN (09:33)
[2020-05-16] MEDS: celeBREX 200mg Cap **SURGERY PATIENTS ONLY ORAL SCH (09:35)
[2020-05-16] MEDS: oxyCONTIN 10mg tab ORAL SCH ×2 (09:36→22:44)
[2020-05-16] MEDS: Docusate 100mg cap ORAL SCH ×3 (09:36→18:49)
[2020-05-16] MEDS: Furosemide 40mg tab ORAL SCH (09:37)
--- NOTE | 2020-05-16 11:37 | NUR ---
NURSE NOTES: Reviewed AM labs with Daksha Palumbo, notified that platelets 97, order to hold Aspirin 1800 dose for today.
[2020-05-16 11:47] VITALS: BP 106/61
[2020-05-16] MEDS: HYDROcodone/Acetamin 5/325 tab ORAL PRN ×2 (11:51→17:32)
--- NOTE | 2020-05-16 14:40 | NUR ---
DISCHARGE PLANNING: NOTE DAMION BLEDSOEAlexHEYDIARMANDO IS THE UR CM FOR THIS PATIENT AT [facility]. SHE CAN BE REACHED AT [phone] ADDITIONAL CLINICALS WERE REQUESTED AND SENT INCLUDING ALL PT NOTES FROM 05/13- CALL PLACED TO ANIBAL AT [facility] >> SHE IS STILL ACCEPTING THIS PT PENDING AUTH AUTH FOR ARU PENDING Addendum: 05/16/20 at 1450 by Peyton Hermosillo CM CALL BACK RECEIVED FROM ANNIKA BRITT [phone]. ANNIKA IS WAITING FOR AUTH FROM [facility] FIELD CM ASSIGNED TO CASE IS LEE @ [facility] C: [phone] NURSING WAS UPDATED
[2020-05-16 15:03] VITALS: BP 91/54
--- NOTE | 2020-05-16 16:04 | NUR ---
NURSE NOTES: Spoke to Shefali RUIZ at [facility] [employer] several times regarding status on authorization approval from [employer] for [facility] rehab facility. Followed up with Peyton [facility]. Notified Daksha ABARCA of pending discharge for today, was instructed to have Peyton RUIZ call Dr. Ann's office and speak to Mehran, who will help with authorization. Notified Peyton RUIZ at [facility] to call Mehran. Patient updated throughout the day, will continue to monitor.
--- NOTE | 2020-05-16 16:24 | NUR ---
DISCHARGE PLANNING: NOTE (REASON FOR NO DC TODAY) PATIENT HAS BEEN ACCEPTED TO [facility] ROOM 201 AUTH RECEIVED FOR ARU FOR 5 DAYS FROM BHARAT KOCH S/W LEE T: [phone] AND DAMION T: [phone] CLINICALS REVIEWED WITH NELSON @ [facility]. PT HAS BEEN SPIKING A TEMP 05/15 101.3 05/16 @ 1200 T- 100. ADMISSION OF THIS PT IS ON HOLD UNTIL PT CAN BE 24 HOURS AFEBRILE. UPDATED CLINICALS INCLUDING DC SUMMARY FAXED TO [phone] [facility] CM WILL F/U WITH MAIK @ [facility] (WEEKEND COVERAGE) T: [phone] IF PT HAS REMAINED AFEBRILE [facility] ON WILL CALL/ CLAIM # [id number] NURSING UPDATED. NURSING TO UPDATED TEVIN PELAEZ NURSE TO NURSE REPORT T: [phone]
--- NOTE | 2020-05-16 16:49 | NUR ---
NURSE NOTES: Patient will not transfer to rehab today due to temperature 101.3 and 100.7 on night stocker, then 100.0 on days today at 1200. Patient must be afebrile for 24 hours (temperature must be under 99.8), patient to be monitored for the next 24 hours (until 1200 tomorrow) for fever. Olivia SANTOS and Daksha ABARCA notified of above. Patient updated, verbalized understanding. Will endorse to next shift. Addendum: 05/16/20 at 1705 by Skye Cates RN Encouraged IS use throughout the day. Encouraged PO fluid intake. Verbalized understanding.
--- NOTE | 2020-05-16 17:42 | NUR ---
INSURANCE UPDATED CLINICALS FAXED TO FAX# [phone] REVIEWS/CLINICALS
--- NOTE | 2020-05-16 19:20 | NUR ---
NURSE NOTES: Received report from Martha SIMMONS.
--- NOTE | 2020-05-16 19:25 | NUR ---
NURSE NOTES: Received pt. in bed, in semi yanez's position, awake, alert and oriented. No sob noted. Denies any pain at this time. With left leg on CPM machine, comfortable at this time. Will continue to monitor.
--- NOTE | 2020-05-16 19:45 | NUR ---
NURSE HAND-OFF: Important Events on Shift: No discharge due to temperature 101.3 on nights and 100 on days, needs to be afebrile for 24 hours (<99.8), has bed ready at [facility] rehab Patient Status: stable Diet: regular Pending Orders: discharge for 05/17 Pending Results/Labs:none Pending MD notification:none Latest Vital Signs: Temperature 98.5 , Pulse 66 , B/P 91 /54 , Respiratory Rate 16 , O2 SAT 98 , Room Air, O2 Flow Rate 3 . Vital Sign Comment: none Latest Dennis Fall Score: 60 Fall Risk: High Risk Safety Measures: Call light Within Reach, Bed Alarm , Side Rails Side Rails x2, Bed position Low and Locked. Fall Precautions: Yellow Socks Yellow Gown Door Sign Patient Fall Education Report given to Mauri SIMMONS.
[2020-05-16 20:00] VITALS: BP 114/70
--- NOTE | 2020-05-16 23:29 | General Progress Note ---
Assessment/Plan Assessment/Plan: sp knee htn chf ho sleep apnea uses cpap post op care pain control bp controlled cpap at night oob PT dvt and ulcer prophylaxis awaiting aru Subjective Allergies: Coded Allergies: No Known Allergies (Unverified , 05/13/20) Subjective doing well post op pain controlled no chest painor sob Objective Last 24 Hour Vital Signs Date Time Temp Pulse Resp B/P (MAP) Pulse Ox O2 Delivery O2 Flow Rate FiO2 05/16/20 22:43 66 114/70 05/16/20 22:00 106/67 05/16/20 15:03 98.5 66 16 91/54 (66) 98 05/16/20 14:00 91/54 05/16/20 11:47 100.0 66 16 106/61 (76) 95 05/16/20 09:00 72 107/64 05/16/20 09:00 107/64 05/16/20 09:00 72 107/64 05/16/20 09:00 Room Air 05/16/20 08:00 99.4 72 16 107/64 (78) 96 05/16/20 05:57 118/70 05/16/20 04:00 99.3 63 16 105/67 (80) 98 05/16/20 00:00 100.7 74 16 109/63 (78) 95 Intake and Output 05/15/20 05/16/20 19:00 07:00 Intake Total 800 ml 300 ml Balance 800 ml 300 ml Intake Oral 800 ml 300 ml # Voids 3 2 # Bowel Movements 1 Laboratory Tests 05/16/20 04:45: White Blood Count 11.8H, Red Blood Count 3.18L, Hemoglobin 9.2L, Hematocrit 28.3L, Mean Corpuscular Volume 89, Mean Corpuscular Hemoglobin 28.9, Mean Corpuscular Hemoglobin Concent 32.4, Red Cell Distribution Width 13.6, Platelet Count 97L, Mean Platelet Volume 10.7H, Neutrophils (%) (Auto) , Lymphocytes (%) (Auto) , Monocytes (%) (Auto) , Eosinophils (%) (Auto) , Basophils (%) (Auto) Height (Feet): 5 Height (Inches): 10.00 Weight (Pounds): 246 General Appearance: WD/WN, no apparent distress Neck: supple Cardiovascular: normal rate Respiratory/Chest: lungs clear Abdomen: soft Objective knee dreessing royal no sign of infection neurovascular intact Rudi Ambriz MD May 16, 2020 23:29
[2020-05-17] VITALS: BP 126/78
--- NOTE | 2020-05-17 00:15 | NUR ---
Pt.'s vitals sign taken and within stable. Temp. @ 0000AM is 99.1.With complaints of pain on left post op knee site, 02/02, due meds given and noted with relief as verbalized by pt. Left knee post op site dressing noted dry and intact. LLE noted with + 2 swelling. Pt. was placed on CPAP machine @ midnight before sleep and made comfortable. Requested not wake up by 4am for the VS but instead by 6am. Able to ambulate with fww steady and slow placed. Voiding freely. Slept at long intervals. Will continue to monitor.
[2020-05-17 06:00] VITALS: BP 119/69
[2020-05-17] MEDS: HydrALAZINE 50mg tab ORAL SCH (06:29)
--- NOTE | 2020-05-17 07:45 | NUR ---
NURSE NOTES: Report given to Evelia SIMMONS.
--- NOTE | 2020-05-17 07:45 | NUR ---
NURSE NOTES: Received report from IRIS Dotson. Pt was sitting on the chair eating breakfast, a&ox4, able to make needs known. No acute distress noted. Denied any pain at this time. Dressing on left need clean, dry and intact. IV intact and patent. Discussed plan of care and discharge plan. Call light within reach. Will continue to monitor.
[2020-05-17 08:00] VITALS: BP 128/75
[2020-05-17] MEDS: Furosemide 40mg tab ORAL SCH (08:54)
[2020-05-17] MEDS: Lisinopril 20mg tab ORAL SCH (08:54)
[2020-05-17] MEDS: Carvedilol 25mg Tab ORAL SCH (08:54)
[2020-05-17] MEDS: oxyCONTIN 10mg tab ORAL SCH (08:54)
[2020-05-17] MEDS: Docusate 100mg cap ORAL SCH ×2 (08:54→12:08)
[2020-05-17] MEDS: celeBREX 200mg Cap **SURGERY PATIENTS ONLY ORAL SCH (08:55)
--- NOTE | 2020-05-17 10:05 | NUR ---
DISCHARGE PLANNING FAXED UPDATED VITALS AND MED LIST TO [facility] T: [phone] MAIK WILL REVIEW THE DOCUMENTS AND REQUEST A BED FOR TODAY
--- NOTE | 2020-05-17 10:38 | NUR ---
DISCHARGE PLANNING RECEIVED CALL FROM MAIK STATING PATIENT HAS BEEN ACCEPTED AT [facility] 4TH FLOOR T: [phone] FOR NURSE TO NURSE REPORT ACCEPTING PHYSICIAN IS DR JOHN WORKMAN CAN ACCEPT PATIENT AFTER 1200 [employer] WILL ARRANGE TRANSPORT Addendum: 05/17/20 at 1053 by KENDALL BROTHERS LVN LVN [facility] HAS BEEN ARRANGED 1300 ICEBOX MAN Addendum: 05/17/20 at 1053 by KENDALL BROTHERS LVN LVN PATIENT HAD BEEN PLACED IN WILL CALL BY HANSEL ON TUESDAY
[2020-05-17 12:00] VITALS: BP 117/69
--- NOTE | 2020-05-17 12:00 | NUR ---
PT Note Attempted to see patient for treatment but patient was not available; was in the bathroom each time.
--- NOTE | 2020-05-17 13:27 | NUR ---
NURSE NOTES: Pt in stable condition, no fever today. Ambulance set up by . Meds recon done by Dr. Ambriz. Called [facility] and spoke to Ida for report. Provided pt discharge education. Picked up home meds from pharmacy and given to pt. All belongings were accounted for. IV removed. report given to Ambulance personnel. Pt picked up by Ambulance via gurney.
--- NOTE | 2020-05-17 19:55 | General Progress Note ---
Assessment/Plan Assessment/Plan: sp knee htn chf ho sleep apnea uses cpap post op care pain control bp controlled cpap at night oob PT dvt and ulcer prophylaxis planning on aru today Subjective Allergies: Coded Allergies: No Known Allergies (Unverified , 05/13/20) Subjective doing well post op pain controlled no chest painor sob Objective Last 24 Hour Vital Signs Date Time Temp Pulse Resp B/P (MAP) Pulse Ox O2 Delivery O2 Flow Rate FiO2 05/17/20 12:00 99.4 66 16 117/69 (85) 97 05/17/20 09:24 99.3 05/17/20 09:00 Room Air 05/17/20 08:54 74 128/75 05/17/20 08:54 128/75 05/17/20 08:54 74 128/75 05/17/20 08:00 99.3 74 16 128/75 (92) 97 05/17/20 06:29 119/69 05/17/20 06:00 98.6 77 17 119/69 (86) 97 05/17/20 00:00 99.1 64 18 126/78 (94) 96 05/16/20 22:43 66 114/70 05/16/20 22:00 106/67 05/16/20 21:00 Room Air 05/16/20 20:00 98.8 66 18 114/70 (85) 99 Intake and Output 05/16/20 05/17/20 19:00 07:00 Intake Total 1900 ml 600 ml Balance 1900 ml 600 ml Intake Oral 1900 ml 600 ml # Voids 4 3 Height (Feet): 5 Height (Inches): 10.00 Weight (Pounds): 246 General Appearance: WD/WN Neck: supple Cardiovascular: normal rate Respiratory/Chest: lungs clear Objective knee dreessing cleaen no sign of infection neurovascular intact Rudi Ambriz MD May 17, 2020 19:55
== END 2020-05-17 13:30 | DRG 470 ==
LOC: SDSOVERFLO 05:46 → 3E 11:03
PROC: 0SRD0J9 Replacement of Left Knee Joint with Synthetic Substitute, Cemented, Open Approach (ICD-10-PCS; principal; 2020-05-13 07:00)
DX: M17.12 Unilateral primary osteoarthritis, left knee (principal); I11.0 Hypertensive heart disease with heart failure; I50.9 Heart failure, unspecified; G47.30 Sleep apnea, unspecified
CPT/HCPCS: 36415; 80053; 85025; 86850; 86900; 86901; 87081; 94003; 94150; J2405; J2795; U0002